=== PATIENT | female | born 1985 | race Two or more races ===

== ENCOUNTER 2018-06-30 11:14 | Emergency (ER) | payer OTHER ==
[2018-06-30 11:24] VITALS: BP 132/80
--- NOTE | 2018-06-30 13:38 | ED Physician Documentation ---
PD HPI URI - Stated complaint Stated Complaint: SORE THROAT - Chief complaint Chief Complaint: Heent - History obtained from History obtained from: Patient, Family - History of Present Illness Timing - onset: How many weeks ago (1) Timing duration: Weeks (1) Timing details: Gradual onset, Still present Associated symptoms: Fever, Ear pain, Nasal congestion, Rhinorrhea, Sinus pain, Sore throat, Dry cough Contributing factors: Sick contact (both children are ill with similar) Improves by: Rest, Medication Similar symptoms before: Has not had sx before Recently seen: Not recently seen - Additional information Additional information: Previously well 32-year-old female has developed a cough and congestion she has developed a sore throat and ear pain has most of her pain on the right side of her head. She is been sick for about 1 week. Review of Systems Constitutional: reports: Fever Eyes: denies: Decreased vision Ears: reports: Ear pain Nose: reports: Rhinorrhea / runny nose, Congestion Throat: reports: Sore throat Cardiac: denies: Chest pain / pressure, Palpitations Respiratory: reports: Cough. denies: Dyspnea PD PAST MEDICAL HISTORY - Past Medical History Past Medical History: Yes Neuro: Headaches, Migraines - Past Surgical History Past Surgical History: No - Present Medications Home Medications: Ambulatory Orders Medication Instructions Recorded Confirmed Amox/Clav 875/125 [Augmentin] 1 each PO Q12H #20 tablet 06/30/18 Rizatriptan Benzoate [Maxalt] 10 mg PO 06/30/18 Topiramate [Topamax] 5 mg PO DAILY 06/30/18 06/30/18 - Allergies Allergies/Adverse Reactions: Allergies Allergy/AdvReac Type Severity Reaction Status Date / Time No Known Drug Allergies Allergy Verified 06/30/18 11:25 - Social History Does the pt smoke?: No Smoking Status: Never smoker Does the pt drink ETOH?: No Does the pt have substance abuse?: No - Immunizations Immunizations are current?: Yes PD ED PE NORMAL - Vitals Vital signs reviewed: Yes (normal ) - General General: Alert and oriented X 3, No acute distress, Well developed/nourished - HEENT HEENT: Atraumatic, PERRL, EOMI, Other (Right TM is inflamed in the basement with retained landmarks. The left is inflamed in the attic and is dull. There is ulceration on the right tonsilar pillar with erythema to both pillars. ) - Neck Neck: Supple, no meningeal sign, No bony TTP - Cardiac Cardiac: RRR, No murmur - Respiratory Respiratory: No respiratory distress, Clear bilaterally - Abdomen Abdomen: Soft, Non tender - Back Back: No CVA TTP, No spinal TTP - Derm Derm: Normal color, Warm and dry, No rash - Extremities Extremities: No deformity, No edema - Neuro Neuro: Alert and oriented X 3, resident services director 2-12 intact, No motor deficit, No sensory deficit, Normal speech Eye Opening: Spontaneous Motor: Obeys Commands Verbal: Oriented GCS Score: 15 - Psych Psych: Normal mood, Normal affect Results - Vitals Vitals: Vital Signs - 24 hr 06/30/18 11:21 Temperature 36.9 C Heart Rate 81 Respiratory 16 Rate Blood Pressure 132/80 H O2 Saturation 100 Oxygen O2 Source Room air - Labs Labs: Laboratory Tests 06/30/18 11:24 Group A Strep Rapid Negative PD MEDICAL DECISION MAKING - ED course Complexity details: reviewed results, re-evaluated patient, considered differential, d/w patient, d/w family ED course: 32-year-old female with cough congestion right ear pain has otitis on examination and her rapid strep is negative. She is administered dexamethasone 10 mg and we will place him on some Augmentin. Departure - Departure Disposition: 01 Home, Self Care Clinical Impression: Otitis media Qualifiers: Otitis media type: suppurative Chronicity: acute Laterality: bilateral Recurrence: not specified as recurrent Spontaneous tympanic membrane rupture: without spontaneous rupture Qualified Code(s): H66.003 - Acute suppurative otitis media without spontaneous rupture of ear drum, bilateral Condition: Stable Instructions: ED Otitis Media Acute Adult Follow-Up: [facility] [Provider Group] Prescriptions: Amox/Clav 875/125 [Augmentin] 1 each PO Q12H #20 tablet
== END 2018-06-30 13:56 | disposition home or self-care (01) ==
LOC: ED 11:14
DX: H66.003 Acute suppurative otitis media without spontaneous rupture of ear drum, bilateral (principal)
CPT/HCPCS: 87070; 87430; 99283

== ENCOUNTER 2018-07-17 09:17 | Emergency (ER) | payer OTHER ==
--- NOTE | 2018-07-17 11:30 | ED Physician Documentation ---
PD HPI HEENT - Stated complaint Stated Complaint: BILAT EAR PAIN - Chief complaint Chief Complaint: Heent - History obtained from History obtained from: Patient - History of Present Illness Timing - onset: How many days ago (43) Timing - duration: Days (4) Timing - details: Gradual onset, Still present Location: Right ear, Left ear Improves: Medication Associated symptoms: Congestion. No: Fever, Headache, Cough Similar symptoms before: Diagnosis (OM) Recently seen: Emergency Dept - Additional information Additional information: 32-year-old female was recently seen in the emergency department and treated for otitis media. She states that her symptoms resolved rapidly and completely with use of the medication her sore throat improved her cough improved and her ear pain improved.She states that after she finished the medication several days later she began to develop intermittent ear pain that can be severe and sharp and she expected this to resolve and it has not. Symptoms have persisted she has not had a cough she has not had fever or sore throat. Review of Systems Constitutional: denies: Fever Eyes: denies: Decreased vision Ears: reports: Loss of hearing, Ear pain Nose: denies: Rhinorrhea / runny nose, Congestion Throat: denies: Sore throat Cardiac: denies: Chest pain / pressure Respiratory: denies: Dyspnea, Cough GI: denies: Abdominal Pain, Nausea, Vomiting : denies: Dysuria PD PAST MEDICAL HISTORY - Past Medical History Past Medical History: Yes Neuro: Headaches, Migraines - Past Surgical History Past Surgical History: No - Present Medications Home Medications: Ambulatory Orders Medication Instructions Recorded Confirmed Amox/Clav 875/125 [Augmentin] 1 each PO Q12H #20 tablet 06/30/18 Rizatriptan Benzoate [Maxalt] 10 mg PO 06/30/18 Topiramate [Topamax] 5 mg PO DAILY 06/30/18 06/30/18 - Allergies Allergies/Adverse Reactions: Allergies Allergy/AdvReac Type Severity Reaction Status Date / Time No Known Drug Allergies Allergy Verified 07/17/18 09:50 - Social History Does the pt smoke?: No Smoking Status: Never smoker Does the pt drink ETOH?: No Does the pt have substance abuse?: No - Immunizations Immunizations are current?: Yes - POLST Patient has POLST: No PD ED PE NORMAL - Vitals Vital signs reviewed: Yes (hypertensive mild ) - General General: Alert and oriented X 3, No acute distress, Well developed/nourished - HEENT HEENT: Atraumatic, PERRL, EOMI, Ears normal, Moist mucous membranes, Pharynx benign, Dentition benign - Neck Neck: Supple, no meningeal sign, No bony TTP - Cardiac Cardiac: RRR, No murmur - Respiratory Respiratory: No respiratory distress, Clear bilaterally - Abdomen Abdomen: Soft, Non tender - Back Back: No CVA TTP, No spinal TTP - Derm Derm: Normal color, Warm and dry, No rash - Extremities Extremities: No deformity, No edema - Neuro Neuro: Alert and oriented X 3, fitness assistant 2-12 intact, No motor deficit, No sensory deficit, Normal speech Eye Opening: Spontaneous Motor: Obeys Commands Verbal: Oriented GCS Score: 15 - Psych Psych: Normal mood, Normal affect Results - Vitals Vitals: Vital Signs - 24 hr 07/17/18 09:49 Temperature 36.6 C Heart Rate 91 Respiratory 18 Rate Blood Pressure 121/82 H O2 Saturation 100 Oxygen O2 Source Room air PD MEDICAL DECISION MAKING - ED course Complexity details: considered differential, d/w patient ED course: 32-year-old female with recent otitis media has returned to the emergency department with ear pain. Today on examination she has no evidence of inflammation to either TM and the architecture appears preserved. I suspect her symptoms are due to eustachian tube dysfunction and she is administered a dose of dexamethasone orally. We will use conservative management and expect improvement. Departure - Departure Disposition: 01 Home, Self Care Clinical Impression: Eustachian tube dysfunction Qualifiers: Laterality: bilateral Qualified Code(s): H69.83 - Other specified disorders of Eustachian tube, bilateral Condition: Stable Instructions: ED Otitis Media Serous Adult Follow-Up: STEPHIE IBRAHIM MD [Primary Care Provider] -
[2018-07-17] MEDS ORDERED: DEXAMETHASONE 10 MG/ML VIAL PO STA (11:35)
[2018-07-17 11:42] VITALS: BP 124/75
== END 2018-07-17 11:41 | disposition home or self-care (01) ==
LOC: ED 09:17
DX: H69.83 Other specified disorders of Eustachian tube, bilateral (principal)
CPT/HCPCS: 99283